=== PATIENT | female | born 1945 | race Caucasian/White ===

== ENCOUNTER → 2016-08-27 | Day surgery (SDC) | payer MEDICARE, OTHER ==
[~2016-08-27] VITALS: Ht 170.2 cm; Wt 101.0 kg
[~2016-08-27] MED LIST: COUMADIN ** IA5 MG PO; FLECAINIDE ACET50 MG PO; K-TAB 10MEQ10 MEQ PO; LASIX20 MG PO; MAGNESIUM CITRATE PO; NORCO 5-325 TA1 EACH PO; PRAVACHOL20 MG PO; PRILOSEC20 MG PO; ROCALTROL0.5 MCG PO; TENORMIN50 MG PO; ZYLOPRIM300 MG PO
--- NOTE | ~2016-08-27 | OR ---
PATIENT'S NAME: ULISSES CORTEZ [facility] AGE: 71 Y [address] ROOM: [place] [address] LOCATION: [facility] [place] ADMIT DATE: 08/27/2016 OR/Procedure Report DISCHARGE DATE: FAMILY PHYSICIAN: Pamella Hebert APRN ATTENDING PHYSICIAN: Jassi Agustin SURGEON: Jassi Agustin MD SPEEDER FRAME TENDER: Tiara Whittington PA-C DATE OF PROCEDURE: 08/27/2016 PREOPERATIVE DIAGNOSIS: Incisional hernia of epigastrium, incarcerated. POSTOPERATIVE DIAGNOSIS: Incisional hernia of epigastrium, incarcerated. PROCEDURE PERFORMED: Incisional herniorrhaphy with Ventralex ST 3.2 inch diameter composite mesh utilization. ANESTHESIA: General with 20 mL of 0.5% Marcaine local. SPECIMENS: None. INDICATION: The patient is a 71-year-old young lady kindly referred by Ms. Pamella Hebert of [place] for evaluation and surgical treatment of another incisional hernia. She has had previous incisional herniorrhaphies from her umbilicus down in the midline and left lower quadrant. She has previous mesh in her abdominal wall. From her previous laparoscopic cholecystectomy incision in the epigastrium just to the right of the midline, she has about a 5 cm incarcerated soft tissue mass consistent with colon with bowel up into an incisional hernia. No bulge. No incarceration. DESCRIPTION OF PROCEDURE: After informed consent, the patient was taken to the operating room, and after general endotracheal anesthesia, the patient's abdomen was prepped and draped into a sterile field. Time-out was performed. We confirmed the patient, planned procedure, and preoperative antibiotic administration. There was a trocar incision just above and to the right of the umbilicus in the midline medial to it. We made of 4 inch midline incision, carried down through the subcutaneous tissue. We encountered a large soft tissue mass consistent with a hernia sac. We circumferentially around the fascial borders. We could not completely reduce it. Then, we had to open up the sac, free up some adhesions like the transverse colon. We were able to reduce it. We went circumferentially around the underlying abdominal wall fascia and freed up adhesions. At the inferior portion of this hernia, at this fascia defect, was previous mesh. We chose the 3.[address] hernia patch. We placed it into the peritoneal cavity, smooth side toward the bowel. Under direct vision, we circumferentially went around at least 2 cm from the fascial border and in the PATIENT'S NAME: ULISSES CORTEZ [facility] AGE: 71 Y [address] ROOM: [place], [place] [address] LOCATION: [facility] [place] ADMIT DATE: 08/27/2016 OR/Procedure Report DISCHARGE DATE: FAMILY PHYSICIAN: Pamella Hebert APRN ATTENDING PHYSICIAN: Jassi Agustin inferior portion, we connected the mesh to mesh previous placement. We used 2- 0 Prolene in a circumferential fascia. We then closed the attenuated fascia over the mesh to separate it from the soft tissue space with interrupted 0 Vicryl. Subcutaneous tissue closed with 3-0 Vicryl, and the skin closed with subcuticular 4-0 Vicryl. Steri-Strips and sterile dressings applied. The patient tolerated the procedure well, transferred to the recovery room in stable condition. JASSI AGUSTIN MD WTS/modl /[id number] d: 08/27/16 1145 t: 08/27/16 1742, OPERATIVE SUMMARY
[2016-08-27 07:49] LABS: PROTIME 10.1 SECONDS (9.6-11.1)
== END ==
LOC: GPOC 08-22 13:00 → GSDC 06:00 → GPOC 13:00
PROVIDERS: Surgery
PROC: 0WUF0JZ Supplement Abdominal Wall with Synthetic Substitute, Open Approach (ICD-10-PCS; principal; 2016-08-27)
DX: K43.0 Incisional hernia with obstruction, without gangrene (principal); I25.10 Atherosclerotic heart disease of native coronary artery without angina pectoris; I12.9 Hypertensive chronic kidney disease with stage 1 through stage 4 chronic kidney disease, or unspecified chronic kidney disease; N18.3 Chronic kidney disease, stage 3 (moderate); I48.0 Paroxysmal atrial fibrillation; E78.5 Hyperlipidemia, unspecified; Z79.01 Long term (current) use of anticoagulants; Z79.899 Other long term (current) drug therapy
CPT/HCPCS: C1781; J0690; J1100; J2001; J2250; J2405; J3010; J7030